=== PATIENT | female | born 1985 | race American Indian/Alaskan Native ===

== ENCOUNTER 2017-03-01 17:15 | Emergency (ER) | payer OTHER ==
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
[2017-03-01 21:33] VITALS: BP 130/75
--- NOTE | 2017-03-01 22:44 | XRay Report ---
FINAL REPORT EXAM: XR SPINE LUMBOSACRAL 2-3V HISTORY: back pain TECHNIQUE: AP and lateral views lumbar spine PRIORS: None. FINDINGS: Lumbar lordosis is intact. Vertebral body heights and intervertebral disc spaces are preserved. No listhesis, spondylolysis or other fracture. IMPRESSION: Unremarkable lumbar spine radiographs.
--- NOTE | 2017-03-01 22:45 | XRay Report ---
FINAL REPORT EXAM: XR SPINE CERVICAL 2-3V HISTORY: neck pain COMPARISONS: None FINDINGS: Four views of the cervical spine Straightening of the cervical spine. Vertebral body heights and intervertebral disc spaces are preserved. No fractures. Prevertebral soft tissues are within normal limits. Incomplete evaluation of the lung apices is unremarkable. IMPRESSION: Straightening of the cervical spine, which may be positional or secondary to muscular spasm. Otherwise unremarkable cervical spine radiographs.
== END 2017-03-02 | disposition home or self-care (01) ==
LOC: ED 17:15
DX: S13.4XXA Sprain of ligaments of cervical spine, initial encounter (principal); F17.200 Nicotine dependence, unspecified, uncomplicated; V49.59XA Passenger injured in collision with other motor vehicles in traffic accident, initial encounter; Y92.488 Other paved roadways as the place of occurrence of the external cause; Y93.89 Activity, other specified; Y99.8 Other external cause status
CPT/HCPCS: 72040; 72100; 81025; 99283

== ENCOUNTER 2018-08-14 20:55 | Emergency (ER) | payer MEDICAID ==
[2018-08-14 21:24] LABS: Basophils # (Auto) 0.1 K/mm3 (0.0-0.1); Basophils % (Auto) 1.1 % (0.0-1.8); Eosinophils # (Auto) 0.2 K/mm3 (0.0-0.4); Eosinophils % (Auto) 1.9 % (0.0-4.3); Hematocrit 35.9 % (30.3-42.9); Hemoglobin 11.8 gm/dl (10.1-14.3); Lymphocytes # (Auto) 4.1 K/mm3 (1.2-5.4); Lymphocytes % (Auto) 47.9 % (13.4-35.0); Mean Corpuscular HGB Conc 33 % (30-34); Mean Corpuscular Volume 88 fl (79-97); Monocytes # (Auto) 0.4 K/mm3 (0.0-0.8); Monocytes % (Auto) 4.6 % (0.0-7.3); Platelet Count 315 K/mm3 (140-440); Red Blood Count 4.11 M/mm3 (3.65-5.03); Red Cell Distribution Width 15.2 % (13.2-15.2)
[2018-08-14 21:53] LABS: Alanine Aminotransferase 9 units/L (7-56); Albumin 4.3 g/dL (3.9-5); BUN/Creatinine Ratio 19; Blood Urea Nitrogen 19 mg/dL (7-17); Calcium 9.6 mg/dL (8.4-10.2); Hemolysis Index 0
[2018-08-14 23:33] LABS: Bilirubin,Urine NEG (Negative); Blood,Urine LG (Negative); Color,Urine Yellow (Yellow); Mucus,Urine FEW /HPF; Urobilinogen,Urine < 2.0 mg/dL (<2.0)
[2018-08-14 23:43] LABS: RBC,Urine > 182.0 /HPF (0.0-6.0); WBC,Urine > 182.0 /HPF (0.0-6.0)
[2018-08-14 23:44] LABS: Bacteria,Urine 1+ /HPF (Negative)
--- NOTE | 2018-08-15 01:19 | Emergency Department Report ---
ED Female HPI - General Chief complaint: Abdominal Pain Stated complaint: ABD PAIN ABNORMAL BLEEDING Source: patient Mode of arrival: Ambulatory Limitations: No Limitations - History of Present Illness Initial comments: This is a 33-year-old -[place] female who presents with lower abdominal pain and abnormal vaginal bleeding for the past 3 days. Patient states her p eriod restarted on 09/01/2018. The period prior was 07/27/2018. This is abnormal for the patient. She is complaining of some suprapubic pain that is a pressure sensation and low back pain. Patient states bleeding was heavy initially and now light spotting. She denies frequency, dysuria, urgency, nausea or vomiting, lightheadedness, or vaginal discharge. MD Complaint: vaginal bleeding, pelvic pain Onset/Timin -: days(s) Location: suprapubic Radiation: non-radiating Severity: moderate Severity scale (0 -10): 10 Quality: aching Consistency: intermittent Improves with: none Worsens with: none Are you Now?: No Last Menstrual Period: 08/12/17 EDC: 05/19/18 Associated Symptoms: vaginal bleeding, abdominal pain. denies: vaginal discharge, nausea/vomiting, fever/chills, headaches, loss of appetite, dysuria, hematuria, rash, seizure, shortness of breath, syncope, weakness - Related Data Sexually active: Yes Previous Rx's Medication Instructions Recorded Last Taken Type HYDROcodone/ACETAMINOPHEN [[place] 1 - 2 each PO Q4-6H #30 tablet 07/03/18 Unknown Rx 5-325 Tablet] Phenazopyridine [Pyridium] 200 mg PO TID #6 tab 08/15/18 Unknown Rx Sulfamethoxazole/Trimethoprim 1 each PO BID #6 tablet 08/15/18 Unknown Rx [Bactrim DS TAB] Allergies Allergy/AdvReac Type Severity Reaction Status Date / Time No Known Allergies Allergy Verified 06/30/18 11:29 ED Review of Systems ROS: Stated complaint: ABD PAIN ABNORMAL BLEEDING Other details as noted in HPI Constitutional: denies: chills, fever Respiratory: denies: cough, shortness of breath, wheezing Cardiovascular: denies: chest pain, palpitations Gastrointestinal: abdominal pain. denies: nausea, diarrhea Genitourinary: abnormal menses. denies: urgency, dysuria, discharge Musculoskeletal: denies: back pain, joint swelling, arthralgia Neurological: denies: headache, weakness, paresthesias Psychiatric: denies: anxiety, depression ED Past Medical Hx - Past Medical History Previous Medical History?: No Hx HIV: No - Surgical History Past Surgical History?: Yes Additional Surgical History: Hemorhoiddectomy - Social History Smoking Status: Current Every Day Smoker Substance Use Type: None - Medications Home Medications: Home Medications Medication Instructions Recorded Confirmed Last Taken Type HYDROcodone/ACETAMINOPHEN [[place] 1 - 2 each PO Q4-6H #30 tablet 07/03/18 Unknown Rx 5-325 Tablet] Phenazopyridine [Pyridium] 200 mg PO TID #6 tab 08/15/18 Unknown Rx Sulfamethoxazole/Trimethoprim 1 each PO BID #6 tablet 08/15/18 Unknown Rx [Bactrim DS TAB] ED Physical Exam - General Limitations: No Limitations General appearance: alert, in no apparent distress - Respiratory Respiratory exam: Present: normal lung sounds bilaterally. Absent: respiratory distress - Cardiovascular Cardiovascular Exam: Present: regular rate, normal rhythm. Absent: systolic murmur, diastolic murmur, rubs, gallop - GI/Abdominal GI/Abdominal exam: Present: soft, normal bowel sounds. Absent: distended, tenderness, guarding, rebound, rigid, organomegaly, mass, bruit, pulsatile mass, hernia - Back Exam Back exam: Absent: CVA tenderness (R), CVA tenderness (L) - Neurological Exam Neurological exam: Present: alert, oriented X3 - Psychiatric Psychiatric exam: Present: normal affect, normal mood - Skin Skin exam: Present: warm, dry, intact, normal color. Absent: rash ED Course Vital Signs 08/14/18 21:02 Temperature 98.1 F Pulse Rate 93 H Respiratory 20 Rate Blood Pressure 112/66 O2 Sat by Pulse 99 Oximetry ED Medical Decision Making - Lab Data Result diagrams: 08/14/18 21:11 08/14/18 21:11 Lab Results 08/14/18 08/14/18 08/14/18 Range/Units 21:11 21:11 21:11 WBC 8.5 (4.5-11.0) K/mm3 RBC 4.11 (3.65-5.03) M/mm3 Hgb 11.8 (10.1-14.3) gm/dl Hct 35.9 (30.3-42.9) % MCV 88 (79-97) fl MCH 29 (28-32) pg MCHC 33 (30-34) % RDW 15.2 (13.2-15.2) % Plt Count 315 (140-440) K/mm3 Lymph % (Auto) 47.9 H (13.4-35.0) % [place]oll[place] % (Auto) 4.6 (0.0-7.3) % Eos % (Auto) 1.9 (0.0-4.3) % Baso % (Auto) 1.1 (0.0-1.8) % Lymph # 4.1 (1.2-5.4) K/mm3 [place] # 0.4 (0.0-0.8) K/mm3 Eos # 0.2 (0.0-0.4) K/mm3 Baso # 0.1 (0.0-0.1) K/mm3 Seg Neutrophils % 44.5 (40.0-70.0) % Seg Neutrophils # 3.8 (1.8-7.7) K/mm3 Sodium 141 (137-145) mmol/L Potassium 4.0 (3.6-5.0) mmol/L Chloride 101.4 (98-107) mmol/L Carbon Dioxide 29 (22-30) mmol/L Anion Gap 15 mmol/L BUN 19 H (7-17) mg/dL Creatinine 1.0 (0.7-1.2) mg/dL Estimated GFR > 60 ml/min BUN/Creatinine Ratio 19 % Glucose 101 H (65-100) mg/dL Calcium 9.6 (8.4-10.2) mg/dL Total Bilirubin < 0.20 (0.1-1.2) mg/dL AST 15 (5-40) units/L ALT 9 (7-56) units/L Alkaline Phosphatase 61 (35-129) units/L Total Protein 7.3 (6.3-8.2) g/dL Albumin 4.3 (3.9-5) g/dL Albumin/Globulin Ratio 1.4 % HCG, Qual Negative (Negative) Urine Color (Yellow) Urine Turbidity (Clear) Urine pH (5.0-7.0) Ur Specific [place] (1.003-1.030) Urine Protein (Negative) mg/dL Urine Glucose (UA) (Negative) mg/dL Urine Ketones (Negative) mg/dL Urine Blood (Negative) Urine Nitrite (Negative) Urine Bilirubin (Negative) Urine Urobilinogen (<2.0) mg/dL Ur Leukocyte Esterase (Negative) Urine WBC (Auto) (0.0-6.0) /HPF Urine RBC (Auto) (0.0-6.0) /HPF U Epithel Cells (Auto) (0-13.0) /HPF Urine Bacteria (Auto) (Negative) /HPF Urine Mucus /HPF 08/14/18 Range/Units Unknown WBC (4.5-11.0) K/mm3 RBC (3.65-5.03) M/mm3 Hgb (10.1-14.3) gm/dl Hct (30.3-42.9) % MCV (79-97) fl MCH (28-32) pg MCHC (30-34) % RDW (13.2-15.2) % Plt Count (140-440) K/mm3 Lymph % (Auto) (13.4-35.0) % [place] % (Auto) (0.0-7.3) % Eos % (Auto) (0.0-4.3) % Baso % (Auto) (0.0-1.8) % Lymph # (1.2-5.4) K/mm3 [place] # (0.0-0.8) K/mm3 Eos # (0.0-0.4) K/mm3 Baso # (0.0-0.1) K/mm3 Seg Neutrophils % (40.0-70.0) % Seg Neutrophils # (1.8-7.7) K/mm3 Sodium (137-145) mmol/L Potassium (3.6-5.0) mmol/L Chloride (98-107) mmol/L Carbon Dioxide (22-30) mmol/L Anion Gap mmol/L BUN (7-17) mg/dL Creatinine (0.7-1.2) mg/dL Estimated GFR ml/min BUN/Creatinine Ratio % Glucose (65-100) mg/dL Calcium (8.4-10.2) mg/dL Total Bilirubin (0.1-1.2) mg/dL AST (5-40) units/L ALT (7-56) units/L Alkaline Phosphatase (35-129) units/L Total Protein (6.3-8.2) g/dL Albumin (3.9-5) g/dL Albumin/Globulin Ratio % HCG, Qual (Negative) Urine Color Yellow (Yellow) Urine Turbidity Slightly-cloudy (Clear) Urine pH 5.0 (5.0-7.0) Ur Specific [place] 1.028 (1.003-1.030) Urine Protein 30 mg/dl (Negative) mg/dL Urine Glucose (UA) Neg (Negative) mg/dL Urine Ketones Neg (Negative) mg/dL Urine Blood Lg (Negative) Urine Nitrite Neg (Negative) Urine Bilirubin Neg (Negative) Urine Urobilinogen < 2.0 (<2.0) mg/dL Ur Leukocyte Esterase Sm (Negative) Urine WBC (Auto) > 182.0 H (0.0-6.0) /HPF Urine RBC (Auto) > 182.0 (0.0-6.0) /HPF U Epithel Cells (Auto) 3.0 (0-13.0) /HPF Urine Bacteria (Auto) 1+ (Negative) /HPF Urine Mucus Few /HPF - Medical Decision Making Patient was examined by me. Vitals are normal and patient is in no acute distress. Obtained a urinalysis, CBC, CMP, and hCG. Acute cystitis Start Bactrim DS and Pyridium. Referral to youth development specialist for follow-up. Plan discussed with patient to discharge home and treat outpatient. Patient discharged home in stable condition. Follow up with PCP in 2-3 days. Critical care attestation.: If time is entered above; I have spent that time in minutes in the direct care of this critically ill patient, excluding procedure time. ED Disposition Clinical Impression: Vaginal bleeding, Pelvic pain Acute cystitis Qualifiers: Hematuria presence: with hematuria Qualified Code(s): N30.01 - Acute cystitis with hematuria Disposition: TO HOME OR SELFCARE Is pt being admited?: No Does the pt Need Aspirin: No Condition: Stable Instructions: Abdominal Pain (ED), Urinary Tract Infection in Women (ED) Additional Instructions: Increase fluid intake to 1L to 2L daily. Complete full course of antibiotics as prescribed. Avoid drinking alcohol while taking antibiotics and for 24 hours after completion. Follow up with primary care provider in 2-3 days. Prescriptions: Phenazopyridine [Pyridium] 200 mg PO TID #6 tab Sulfamethoxazole/Trimethoprim [Bactrim DS TAB] 1 each PO BID #6 tablet Referrals: RODY CHAUDHRY MD [Primary Care Provider] - 3-5 Days [facility] [Provider Group] - 3-5 Days [facility] [Provider Group] - 3-5 Days [facility] [Provider Group] - 3-5 Days Time of Disposition: 01:20
[2018-08-15 01:30] VITALS: BP 106/51
== END 2018-08-15 01:30 | disposition home or self-care (01) ==
LOC: ED 20:55
DX: N30.01 Acute cystitis with hematuria (principal); N93.9 Abnormal uterine and vaginal bleeding, unspecified; F17.200 Nicotine dependence, unspecified, uncomplicated
CPT/HCPCS: 36415; 80053; 81001; 84703; 85025; 99283

== ENCOUNTER 2019-02-09 21:19 | Emergency (ER) | payer MEDICAID ==
--- NOTE | 2019-02-09 22:44 | Event Note ---
ED Screening Note Date of service: 02/09/19 Time: 22:43 ED Screening Note: 33 y o female presents with lower pelvic pain x this am states on Depo provera denies dysuria admits vaginal d/c This initial assessment/diagnostic orders/clinical plan/treatment(s) is/are subject to change based on patients health status, clinical progression and re- assessment by fellow clinical providers in the ED. Further treatment and workup at subsequent clinical providers discretion. Patient/guardian urged not to elope from the ED as their condition may be serious if not clinically assessed and managed. Initial orders include: ua,upt wet prep
[2019-02-09 22:45] VITALS: BP 101/65
[2019-02-10 00:17] LABS: Bilirubin,Urine NEG (Negative); Blood,Urine NEG (Negative); Color,Urine Yellow (Yellow); Mucus,Urine 3+ /HPF; Protein,Urine <15 mg/dL mg/dL (Negative); Urobilinogen,Urine < 2.0 mg/dL (<2.0)
[2019-02-10 00:20] LABS: HCG Qualitative,Urine Negative (Negative)
== END 2019-02-10 00:40 | disposition left against medical advice (07) ==
LOC: ED 21:19
DX: R10.2 Pelvic and perineal pain (principal); R51 Headache; Z98.890 Other specified postprocedural states
CPT/HCPCS: 81001; 81025; 87086; 99283

== ENCOUNTER 2019-02-10 16:35 | Emergency (ER) | payer MEDICAID ==
--- NOTE | 2019-02-10 16:40 | Emergency Department Report ---
Blank Doc - Documentation Documentation: This is a 33-year-old female that presents with pelvic pain and vaginal discha rge. This initial assessment/diagnostic orders/clinical plan/treatment(s) is/are subject to change based on patient's health status, clinical progression and re- assessment by fellow clinical providers in the ED. Further treatment and workup at subsequent clinical providers discretion. Patient/guardians urged not to elope from the ED as their condition may be serious if not clinically assessed a nd managed. Initial orders include: 1- Patient sent to [facility] for further evaluation and treatment 2- wet prep 3- UA 4- pelvic exam to be done
[2019-02-10 17:11] LABS: HCG Qualitative,Urine Negative (Negative)
[2019-02-10 17:19] LABS: Bilirubin,Urine NEG (Negative); Blood,Urine NEG (Negative); Color,Urine Yellow (Yellow); Mucus,Urine FEW /HPF; Protein,Urine <15 mg/dL mg/dL (Negative); Urobilinogen,Urine < 2.0 mg/dL (<2.0)
--- NOTE | 2019-02-10 19:49 | Emergency Department Report ---
ED Female HPI - General Chief complaint: Abdominal Pain Stated complaint: LOW ABDOMINAL PAIN Time Seen by Provider: 02/10/19 16:39 Source: patient Mode of arrival: Ambulatory Limitations: No Limitations - History of Present Illness MD Complaint: vaginal discharge, possible STD -: days(s) (2) Location: suprapubic Radiation: non-radiating, suprapubic Severity: mild Quality: aching Consistency: constant Improves with: none Worsens with: none Are you Now?: No Associated Symptoms: vaginal discharge. denies: fever/chills, loss of appetite, dysuria, hematuria, rash, shortness of breath, syncope, weakness - Related Data Previous Rx's Medication Instructions Recorded Last Taken Type HYDROcodone/ACETAMINOPHEN [[place] 1 - 2 each PO Q4-6H #30 tablet 07/03/18 Unknown Rx 5-325 Tablet] Phenazopyridine [Pyridium] 200 mg PO TID #6 tab 08/15/18 Unknown Rx Sulfamethoxazole/Trimethoprim 1 each PO BID #6 tablet 08/15/18 Unknown Rx [Bactrim DS TAB] metroNIDAZOLE [Flagyl] 500 mg PO Q12HR #10 tab 02/10/19 Unknown Rx Allergies Allergy/AdvReac Type Severity Reaction Status Date / Time No Known Allergies Allergy Verified 06/30/18 11:29 ED Review of Systems ROS: Stated complaint: LOW ABDOMINAL PAIN Other details as noted in HPI Comment: All other systems reviewed and negative ED Past Medical Hx - Past Medical History Previous Medical History?: No Hx HIV: No - Surgical History Past Surgical History?: No Additional Surgical History: Hemorhoiddectomy - Social History Smoking Status: Current Every Day Smoker Substance Use Type: None - Medications Home Medications: Home Medications Medication Instructions Recorded Confirmed Last Taken Type HYDROcodone/ACETAMINOPHEN [[place] 1 - 2 each PO Q4-6H #30 tablet 07/03/18 Unknown Rx 5-325 Tablet] Phenazopyridine [Pyridium] 200 mg PO TID #6 tab 08/15/18 Unknown Rx Sulfamethoxazole/Trimethoprim 1 each PO BID #6 tablet 08/15/18 Unknown Rx [Bactrim DS TAB] metroNIDAZOLE [Flagyl] 500 mg PO Q12HR #10 tab 02/10/19 Unknown Rx ED Physical Exam - General Limitations: No Limitations General appearance: alert, in no apparent distress - Head Head exam: Present: atraumatic, normocephalic - Eye Eye exam: Present: normal appearance, PERRL, EOMI Pupils: Present: normal accommodation - ENT ENT exam: Present: mucous membranes moist - Neck Neck exam: Present: normal inspection - Respiratory Respiratory exam: Present: normal lung sounds bilaterally. Absent: respiratory distress, wheezes, rales, chest wall tenderness, accessory muscle use - Cardiovascular Cardiovascular Exam: Present: regular rate, normal rhythm. Absent: systolic murmur, diastolic murmur, rubs, gallop - GI/Abdominal GI/Abdominal exam: Present: soft, normal bowel sounds - External exam: Present: normal external exam Speculum exam: Present: vaginal discharge, cervical discharge - Extremities Exam Extremities exam: Present: normal inspection, normal capillary refill - Back Exam Back exam: Present: normal inspection, full ROM. Absent: CVA tenderness (R), CVA tenderness (L) - Neurological Exam Neurological exam: Present: alert, oriented X3, CN II-XII intact, normal gait. Absent: motor sensory deficit - Psychiatric Psychiatric exam: Present: normal affect, normal mood. Absent: anxious, flat affect, manic - Skin Skin exam: Present: warm, dry, intact, normal color. Absent: rash, cyanosis, diaphoretic, erythema, urticaria, petechiae, pallor, abrasion, ecchymosis ED Course Vital Signs 02/10/19 02/10/19 16:39 17:02 Temperature 98.1 F Pulse Rate 95 H Respiratory 18 16 Rate Blood Pressure 110/64 O2 Sat by Pulse 98 Oximetry Critical care attestation.: If time is entered above; I have spent that time in minutes in the direct care of this critically ill patient, excluding procedure time. ED Disposition Clinical Impression: Bacterial vaginosis Disposition: DC-01 TO HOME OR SELFCARE Is pt being admited?: No Does the pt Need Aspirin: No Condition: Stable Instructions: Abdominal Pain (ED), Bacterial Vaginosis (ED) Additional Instructions: Results of your gonorrhea and chlamydia or result within the next 48 hours Prescriptions: metroNIDAZOLE [Flagyl] 500 mg PO Q12HR #10 tab Referrals: OCTAVIA VALDIVIA MD [Primary Care Provider] - 3-5 Days Forms: STI Treatment and Prevention
[2019-02-10 20:41] VITALS: BP 121/78
== END 2019-02-10 20:41 | disposition home or self-care (01) ==
LOC: ED 16:35
DX: N76.0 Acute vaginitis (principal); F17.200 Nicotine dependence, unspecified, uncomplicated; Z79.899 Other long term (current) drug therapy
CPT/HCPCS: 81001; 81025; 87210; 87591